=== PATIENT | female | born 1970 | race Two or more races ===

== ENCOUNTER 2018-04-10 14:19 | Outpatient (CLI) | payer OTHER ==
[~2018-04-10 14:19] MED LIST: OMEPRAZOLE40 MG PO; PREMARIN0.45 MG PO; TRAMADOL HCL-AP1 TAB PO; ZANTAC300 MG PO
== END 2018-04-10 14:37 | disposition home or self-care (01) ==
LOC: RAD 501 14:19
DX: M25.522 Pain in left elbow (principal)

== ENCOUNTER 2018-12-21 10:20 | Outpatient (CLI) | payer OTHER | END 2018-12-21 13:09 | disposition home or self-care (01) | LOC: RAD 10:20 | DX: R07.89 Other chest pain (principal) ==

== ENCOUNTER → 2019-03-13 | Outpatient (CLI) | payer OTHER | END | disposition home or self-care (01) | LOC: SONOGRAMA 11:02 | DX: M25.511 Pain in right shoulder (principal) ==

== ENCOUNTER 2019-04-12 11:16 | Outpatient (CLI) | payer OTHER | END 2019-04-12 13:23 | disposition home or self-care (01) | LOC: RAD 11:16 | DX: R07.9 Chest pain, unspecified (principal) ==

== ENCOUNTER → 2019-04-16 10:08 | Outpatient (CLI) | payer OTHER | END | disposition home or self-care (01) | LOC: EKG 10:08 | DX: I10 Essential (primary) hypertension (principal) ==

== ENCOUNTER 2019-08-17 11:18 | Outpatient (CLI) | payer OTHER | END 2019-08-17 11:53 | disposition home or self-care (01) | LOC: MAMO-SONO 11:18 | DX: Z12.31 Encounter for screening mammogram for malignant neoplasm of breast (principal); Z87.898 Personal history of other specified conditions ==

== ENCOUNTER 2019-08-23 14:30 | Outpatient (CLI) | payer OTHER | END 2019-08-23 15:26 | disposition home or self-care (01) | LOC: NUCLEAR 14:30 | DX: M81.0 Age-related osteoporosis without current pathological fracture (principal) ==